=== PATIENT | male | born 1995 | race Caucasian/White ===

== ENCOUNTER 2022-09-05 08:31 | Emergency (ER) | payer MEDICAID ==
[~2022-09-05] VITALS: Ht 188 cm; Wt 81.6 kg
--- NOTE | 2022-09-05 08:56 | NUR ---
Pt arrived in the ED w/ c/o shortness of breath. Presenting labored breathing, 77% O2 sat on room air, provided 5L of O2 via nasal cannula, O2 sat elevated to 95%.
[2022-09-05] MEDS ORDERED: ALBUTEROL SULFATE 2.5 MG/3 ML NEBU ONE (09:09)
[2022-09-05] MEDS ORDERED: IPRATROPIUM BROMIDE 0.5 MG/2.5 ML NEBU ONE (09:10)
[2022-09-05] MEDS ORDERED: MAGNESIUM SULFATE 2 GM in IV DEXTROSE 5% 100 ML IV ONE (09:15)
[2022-09-05] MEDS ORDERED: IPRATROPIUM BROMIDE 0.5 MG/2.5 ML NEBU NEB ONE (09:15)
[2022-09-05] MEDS ORDERED: methylPREDNISolone SOD SUCC 125 MG/2 ML VIAL IV ONE (09:15)
[2022-09-05] MEDS ORDERED: ALBUTEROL SULFATE 2.5 MG/3 ML NEBU NEB ONE (09:15)
[2022-09-05] MEDS ORDERED: methylPREDNISolone SOD SUCC 125 MG/2 ML VIAL ONE (09:21)
[2022-09-05] MEDS ORDERED: MAGNESIUM SULFATE/D5W 200 ML ONE (09:23)
[2022-09-05 09:28] LABS: ABG BASE EXCESS 0.9 mmol/L; ABG HCO3 28.8 mmol/L; ABG PCO2 58.5 mmHg (35.0-45.0); ABG PO2 98.5 mmHg (75.0-100.0); ABG SITE LEFT BRACHIAL; ABG TOTAL HEMOGLOBIN 16.2 G/dL (13.5-18.0); COHb 0.8 % (0.5-1.5); MetHb 0.4 % (0.0-1.5); O2Hb 96.3 % (94.0-97.0); VENT MODE Nasal Cannula
[2022-09-05 09:30] LABS: HEMATOCRIT 46.7 % (36.7-47.1); MEAN CORPUSCULAR HEMOGLOBIN 29.1 uug (23.8-33.4); PLATELET COUNT (AUTO) 298 K/uL (152-348)
[2022-09-05] MEDS ORDERED: ONDANSETRON 4 MG/2 ML VIAL IV PRN (09:30)
[2022-09-05] MEDS ORDERED: ACETAMINOPHEN 325 MG TABLET PO PRN (09:30)
[2022-09-05] MEDS ORDERED: hydrALAZINE HCL 20 MG/1 ML VIAL IV PRN (09:30)
[2022-09-05] MEDS ORDERED: FLUTICASONE/VILANTEROL 1 EACH BLST.W.DEV INH SCH (09:30)
[2022-09-05] MEDS ORDERED: ALBUTEROL SULFATE 8 GM HFA.AER.AD IH PRN (09:30)
[2022-09-05] MEDS ORDERED: MORPHINE SULFATE 2 MG/1 ML DISP.SYRIN IVP PRN (09:30)
--- NOTE | 2022-09-05 09:43 | NUR ---
Paulino ohara in [facility] - 09/05/22 at 0943 by JESSICA Gave report to Raegan WARREN
[2022-09-05 09:51] LABS: CARBON DIOXIDE 36 mmol/L (21-32); CHLORIDE 97 mmol/L (98-107); CREATININE 0.7 mg/dL (0.6-1.3); GLUCOSE 107 mg/dL (74-106); UREA NITROGEN, BLOOD 11 mg/dL (7-18)
--- NOTE | 2022-09-05 10:12 | NUR ---
Pt refused to be admitted, made aware. Will leave AMA.
[2022-09-05] MEDS ORDERED: ALBU18HF2 INH (10:31)
[2022-09-05] MEDS ORDERED: PRED20TA PO (10:31)
[2022-09-05] MEDS ORDERED: NALO4SPR BNOSTRILS (10:31)
--- NOTE | 2022-09-05 11:00 | NUR ---
Patient discharged to home in stable condition. Written and verbal after care instructions given. Patient verbalizes understanding of instructions. Stressed follow up or return to ER for worsening s/s.
[2022-09-05 11:15] VITALS: BP 113/68
[2022-09-05] MEDS ORDERED: HEPARIN SODIUM,PORCINE 5,000 UNITS/ML VIAL SQ SCH (17:00)
== END 2022-09-05 11:13 | disposition left against medical advice (07) ==
LOC: ER 08:31
DX: J45.901 Unspecified asthma with (acute) exacerbation (principal); J96.02 Acute respiratory failure with hypercapnia; J96.01 Acute respiratory failure with hypoxia; F19.10 Other psychoactive substance abuse, uncomplicated; Z20.822 Contact with and (suspected) exposure to COVID-19; R00.0 Tachycardia, unspecified; R03.0 Elevated blood-pressure reading, without diagnosis of hypertension; Z53.29 Procedure and treatment not carried out because of patient's decision for other reasons
CPT/HCPCS: 99291; 96365; 96375; 87426; 87804 ×2; 80048; 85025; 87040 ×2; 84484; 36415; 93005; 71045; 94644; 82803; 36600 ×2; J3475; J2930; A4663; J3590